=== PATIENT | female | born 1980 | race Caucasian/White ===

== ENCOUNTER 2018-10-27 16:46 | Emergency (ER) | payer OTHER ==
--- OUTSIDE RECORDS SUMMARY | 2018-10-27 17:01 | XMS REPORT | Continuity of Care Document ---
:1980 External Reference #:[id number] Author Name Belinda Viera Care Team Providers Name Role Phone Ila Rodrigues PA Primary Care Physician Unavailable Payers Date Identification Numbers Payment Provider Subscriber Effective: Policy Number: [id number] Lifetime Benefit Reji De La Fuente 2014 Solution Group [place] [facility] [place] [address] PayID: [place] [address] Advance Directives Description No Information Available Problems Date Description Provider Status Onset: 03/31/2015 Migraine without aura Terence Morton M.D. Active Onset: 03/04/2018 Methicillin resistant Staphylococcus Active aureus infection Onset: 05/30/2011 Palpitations Active Onset: 05/30/2011 Migraine with typical aura Active Onset: 05/30/2011 Anxiety state Active Onset: 05/30/2011 Depressive disorder Active Onset: 05/30/2011 Obesity Active Onset: 05/30/2011 Abnormal weight gain Active Onset: 10/14/2018 Abdominal pain ROSE Alatorre Active Onset: 10/14/2018 Mood swings ROSE Alatorre Active Onset: 10/14/2018 Allergic rhinitis ROSE Alatorre Active Family History Date Family Member(s) Observation Comments General Migraine General Cancer General Diabetes General Hypercholesterolemia General Arthritis General Hypertension Mother Rheumatoid Arthritis Mother Hypertension Social History Type Date Description Comments Sex Unknown Marital Status Lives With Spouse Lives With Children 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 Working Tobacco Use Start: Unknown Never Smoked Cigarettes Smoking Status Reviewed: 10/14/18 Never Smoked Cigarettes ETOH Use Occasionally consumes alcohol Tobacco Use Start: Unknown Patient has never smoked Recreational Drug Use Denies Drug Use Exercise Type/Frequency Exercises sporadically Allergies, Adverse Reactions, Alerts Date Description Reaction Status Severity Comments 11/08/2011 Penicillin Active Medications Medication Date Status Form Strength Qnty SIG Indications Ordering Provider Depsocrates 09/[address] 125mg 60tab one pill F34.9 s daily for Conley one week and MD madhav then increase to one pill twice a day Sumatriptan 02/20 Active Solution 4mg/0.5ML 10uni 1 injection Terence Echavarria Auto-Injec ts twice daily denton Morton as needed on M.D. no more than 2 days/week. please include autoinjector with instructions . Venlafaxine HCL 06/05 Active Caps ER 37.5mg 30cap 1 by mouth 24HR s every day Yael corey MD Buspirone HCL 04/18 Active Tablets 10mg 90tab Take One s Tablet By Yael Mouth Nicole corey MD Day Omeprazole 08/11 Active Capsules 20mg 90cap [address] corey every day Yael corey MD Topiramate 12/17 Active Tablets 100mg 90tab 1 by mouth s every day Yael corey MD Acetaminophen Active Tablets 2 tabs 3x a Unknown /0000 day as needed Biotin Active Capsules 1 tab daily Unknown /0000 otc Fusion Plus Active Chewables 2 by mouth Unknown /0000 twice daily Vitamin D Active Capsules 64647Sgzp Take 1 Unknown (Ergocalciferol /0000 Capsule By ) Mouth Twice A Week Dicyclomine HCL Active Tablets 20mg Take One Unknown /0000 Tablet By Mouth Three Times A Day as Needed For Abdominal Pain Benzonatate 08/22 Hx Capsules 200mg 30cap 1 by mouth R05 madhav three times Conley - a day MD madhav 09/23 Bactrim DS 02/24 Hx Tablets 800-160mg 20tab 1 by mouth L03.90 madhav twice a day Yael corey MD 04/07 Valium 01/10 Hx Tablets 5mg 3tabs take 1 tablet 1/2 Conley - hour before MD madhav 02/24 appt, tablet at procedure and another 1/2 hour later if needed Ciprofloxacin 05/06 Hx Tablets 500mg 20tab 1 by mouth N39.0 s twice a day Yael corey MD 05/20 Venlafaxine HCL 05/06 Hx Caps ER 75mg 30cap 1 by mouth 24HR s every day Yael corey MD 06/05 Zithromax 09/11 Hx Packet 1gm 7.5 J20.9 milliliters Conley - by mouth MD madhav 09/11 daily for days Zithromax Z-Christopher 08/30 Hx Tablets 250mg 6tabs day number J20.9 one two Conley - tablets then MD madhav 09/11 day two thru day number five one every day Benzonatate 08/30 Hx Capsules 200mg 30cap one three R0 s times a day Conley - as needed MD madhav 09/11 Pyridium 08/15 Hx Tablets 200mg 9tabs one three times a day Conley - after meals MD madhav 08/30 urine Bactrim DS 08/10 Hx Tablets 800-160mg 20tab 1 by mouth N39.0 s twice a day Yael corey MD 08/30 Ergocalciferol 08/11 Hx Capsules 74190Gfdi 4caps one every weekly Yael corey MD 02/20 Minocin 02/08 Hx Capsules 100mg 60cap 1 by mouth 704.9 s twice a day Yael corey MD 02/20 Azithromycin 07/22 Hx Tablets 250mg 6tabs 2 tablets 461.0 day one then Yael - one tablet MD madhav 02/08 day2 thru day 5 Ativan 05/31 Hx Tablets 1mg 4tabs one tablet 300.00 one hour Conley - prior to MD madhav 02/08 procedure, needed can repeat in one hour do not drive with medication Venlafaxine HCL 05/07 Hx Tablets ER 150mg 90tab Take One 24HR s Tablet By Yael - Mouth Every MD madhav Ibuprofen 02/04 Hx Tablets 800mg 60tab one three 726.90 s times a day Yael - with food MD madhav 02/08 Sumatriptan 05/14 Hx Solution 6mg/0.5ML 10uni 1 injection Terence S. Succinate ts twice a day Selene, - as needed M.D. 02/27 max 2 days a wk Topiramate 05/14 Hx Tablets 25mg 120ta 1 qam for 1 Terence S. /2012 bs week then 2 Selene, - qam for 1 M.D. 12/17 week then qam for 1 week then 4 qam Promethazine 05/14 Hx Tablets 25mg 60tab 1 three S. HCL s times a day Selene, - as needed M.D. 02/26 nausea Azithromycin 02/10 Hx Tablets 250mg 6tabs 2 tablets 466.0 day one then Yael - one tablet MD madhav 11/04 day2 thru day 5 Axert 09/23 Hx Tablets 12.5mg 10tab 1 twice a Terence S. /2012 s day max Selene, William 2d/wk prn M.D. 05/14 headache Maxalt-IMPROVEMENT LEAD 08/14 Hx Tablets 10mg 10tab 1 twice a Terence S. /2012 Dispers s day max 2 Selene, - days/week as M.D. 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 11/23 Mobic 10/18 Hx Tablets 15mg 30tab one qd with 724.9 s bereket corey MD 02/19 Effexor XR Hx Caps ER 37.5mg 30cap 1 po qd Unknown /0000 24HR s - 09/23 Buspar Hx Tablets 5mg 90tab 1 po qd Unknown /0000 s - 09/23 Multi Vitamin Hx Tablets 1 by mouth Unknown Daily /0000 every day - 02/19 Vitamin D Hx Tablets 5000Iu by mouth Unknown /0000 everyday - 09/23 Sumatriptan Hx Tablets 100mg Unknown Succinate /0000 - 02/08 Nystatin Hx Powder [id number] Apply To Unknown / t/GM Affected - Area(S) 08/30 Three Times /2016 A Day as Needed Medications Administered in Office Medication Date Status Form Strength Qnty SIG Indications Ordering Provider Depomedstephanie Administered Injection Summer 80MG Ava Bolden M.D. Immunizations CPT Code Status Date Vaccine Lot # [id number] Given 02/08/2015 Tdap - Tetanus/Diptheria/Acellular Pertussis 80034 Given 11/30/2010 Tdap - Tetanus/Diptheria/Acellular Pertussis 95256 Given 05/03/2009 Administration Swine Flu Shot [id number] Given 05/05/2008 Influenza Virus 3Yrs & Over Vital Signs Date Vital Result Comment 10/14/2018 1:01pm Weight 177.00 lb BP Systolic Sitting 96 mmHg BP Diastolic Sitting 40 mmHg 09/23/2018 4:24pm Weight 176.00 lb BP Systolic Sitting 112 mmHg BP Diastolic Sitting 60 mmHg 09/23/2018 3:14pm Weight 168.00 lb BP Systolic Sitting 112 mmHg BP Diastolic Sitting 60 mmHg 08/22/2018 11:06am Weight 172.00 lb BP Systolic Sitting 110 mmHg BP Diastolic Sitting 50 mmHg Body Temperature 99.2 F 05/27/2018 4:10pm Weight 169.00 lb BP Systolic 104 mmHg BP Diastolic 50 mmHg 04/01/2018 2:49pm Weight 171.00 lb BP Systolic 100 mmHg BP Diastolic 50 mmHg 03/04/2018 1:24pm Weight 166.00 lb 02/27/2018 11:35am Weight 166.00 lb BP Systolic 108 mmHg BP Diastolic 60 mmHg Body Temperature 99.4 F 02/24/2018 3:30pm Height 64.6 inches Weight 166.00 lb BP Systolic 100 mmHg BP Diastolic 70 mmHg BMI (Body Mass Index) 28.0 kg/m2 02/20/2018 3:57pm Height 64 inches 5'4" Weight 162.00 lb Heart Rate 72 /min BP Systolic 106 mmHg BP Diastolic 80 mmHg Respiratory Rate 20 /min Pain Level 3 O2 % BldC Oximetry 99 % BMI (Body Mass Index) 27.8 kg/m2 12/24/2017 12:56pm Weight 164.00 lb BP Systolic 90 mmHg BP Diastolic 40 mmHg 09/23/2017 1:07pm Weight 159.00 lb BP Systolic 80 mmHg BP Diastolic 40 mmHg 06/24/2017 1:11pm Weight 161.00 lb BP Systolic 96 mmHg BP Diastolic 46 mmHg 05/20/2017 1:48pm Weight 156.00 lb 05/06/2017 10:01am Weight 151.00 lb BP Systolic 90 mmHg BP Diastolic 50 mmHg Body Temperature 98.9 F 02/28/2017 2:35pm Height 64 inches 5'4" Weight 143.00 lb Heart Rate 76 /min BP Systolic Sitting 110 mmHg BP Diastolic Sitting 64 mmHg Respiratory Rate 16 /min Pain Level 0 BMI (Body Mass Index) 24.5 kg/m2 02/21/2017 3:34pm Height 64.6 inches Weight 151.00 lb BP Systolic 110 mmHg BP Diastolic 50 mmHg Respiratory Rate 12 /min Body Temperature 98.8 F BMI (Body Mass Index) 25.4 kg/m2 12/12/2016 1:24pm Weight 147.00 lb BP Systolic 102 mmHg BP Diastolic 60 mmHg 09/11/2016 10:53am Weight 145.00 lb BP Systolic 100 mmHg BP Diastolic 50 mmHg 08/30/2016 10:40am Weight 144.00 lb Body Temperature 99.2 F 08/10/2016 11:33am Weight 148.00 lb BP Systolic 92 mmHg BP Diastolic 50 mmHg Body Temperature 99.0 F 06/28/2016 3:14pm Weight 150.00 lb BP Systolic 90 mmHg BP Diastolic 50 mmHg 02/21/2016 3:29pm Height 64.6 inches Weight 157.00 lb BP Systolic 70 mmHg Respiratory Rate 12 /min Body Temperature 98.7 F BMI (Body Mass Index) 26.4 kg/m2 11/09/2015 1:48pm Weight 175.00 lb 10/27/2015 1:06pm Weight 176.00 lb 10/05/2015 1:02pm Weight 181.00 lb BP Systolic 110 mmHg BP Diastolic 76 mmHg 08/11/2015 2:03pm Weight 211.00 lb BP Systolic 118 mmHg BP Diastolic 60 mmHg 05/19/2015 4:26pm Height 64.6 inches Weight 220.00 lb BP Systolic 120 mmHg BP Diastolic 74 mmHg BMI (Body Mass Index) 37.1 kg/m2 05/11/2015 1:41pm Weight 222.00 lb Body Temperature 98.6 F 03/31/2015 1:09pm Height 64 inches 5'4" Weight 214.00 lb Heart Rate 84 /min BP Systolic Sitting 128 mmHg BP Diastolic Sitting 92 mmHg BMI (Body Mass Index) 36.7 kg/m2 02/08/2015 3:56pm Height 64 inches Weight 218.00 lb Heart Rate 76 /min BP Systolic 118 mmHg BP Diastolic 70 mmHg Respiratory Rate 14 /min Body Temperature 98.8 F BMI (Body Mass Index) 37.4 kg/m2 07/22/2014 9:17am Weight 218.00 lb Heart Rate 115 /min BP Systolic 120 mmHg BP Diastolic 82 mmHg Body Temperature 100.3 F 05/31/2014 1:28pm Weight 217.00 lb BP Systolic 118 mmHg BP Diastolic 80 mmHg 02/04/2014 10:05am Height 64.6 inches Weight 227.00 lb Heart Rate 76 /min BP Systolic 110 mmHg BP Diastolic 70 mmHg Respiratory Rate 14 /min Body Temperature 98.8 F BMI (Body Mass Index) 38.2 kg/m2 11/04/2013 9:31am Weight 228.00 lb BP Systolic 110 mmHg BP Diastolic 70 mmHg 04/23/2013 2:19pm Weight 235.00 lb BP Systolic 120 mmHg BP Diastolic 80 mmHg 02/10/2013 1:20pm Weight 230.00 lb Heart Rate 86 /min BP Systolic 120 mmHg BP Diastolic 76 mmHg Body Temperature 99.1 F 11/24/2012 1:21pm Weight 223.00 lb BP Systolic 120 mmHg BP Diastolic 70 mmHg 07/02/2012 2:34pm BP Systolic 110 mmHg BP Diastolic 74 mmHg Body Temperature 99.2 F 02/20/2012 2:39pm Height 63.4 inches Heart Rate 78 /min BP Systolic 130 mmHg BP Diastolic 80 mmHg Respiratory Rate 18 /min Body Temperature 98.6 F 12/13/2011 9:54am BP Systolic 110 mmHg BP Diastolic 64 mmHg 11/22/2011 10:59am Height 64 inches 5'4" BP Systolic 108 mmHg BP Diastolic 66 mmHg 10/19/2011 9:10am Height 64 inches Weight 212.00 lb BP Systolic 118 mmHg BP Diastolic 80 mmHg BMI (Body Mass Index) 36.4 kg/m2 09/05/2011 2:29pm Weight 214.00 lb BP Systolic 110 mmHg BP Diastolic 90 mmHg Results Test Date Facility Test Result H/L Range Note Wound 02/27/2018 N2N/CCD Import Wound/Misc See Result 1, 2 Culture/Sensi Culture-Gram Below Stain CBS W/Automated 07/10/2017 N2N/CCD Import Bas% 0.2 % 0-1.1 3 Diff Baso # 0.02 K/uL 0-0.1 Eo% 1.7 % 0-6.6 Eos # 0.14 K/uL 0-0.5 Hematocrit 41.2 % 36-46.1 Hemoglobin 14.1 gm/dL 11.6-15.8 Lymph # 2.72 K/uL 1-4 Lymph % 33.4 % 20-42 Mean Cell Volume 96.3 fl 80.9-99 Mean Corpuscular HGB 32.9 pg High 25.9-32.7 Mean Corpuscular HGB Conc 34.2 g/dL 30.8-34.3 Mean Platelet Volume 11.1 fL 8.9-12.4 Meagher # 0.54 K/uL 0.3-0.9 Meagher % 6.6 % 4.3-13.2 Neut# 4.72 K/uL 1.8-7 Neut% 58.1 % 40.4-72.8 Platelet Count 255 K/uL 155-360 Red Blood Count 4.28 M/uL 3.9-5.4 Red Cell Distri Width %CV 12.6 % 11.7-14.4 Red Cell Distri Width SD 43.1 fl 3-47 White Blood Count 8.1 K/uL 3.1-10.7 Comprehensive Metabolic Panel 07/10/2017 N2N/CCD Import Alb/Glob 0.9 ratio Albumin 4.3 g/dL 3.4-5 Alkaline Phosphatase 88 U/L 45-117 Anion Gap 8 mEq/L 8-16 BUN 20 mg/dL High 7-18 BUN/Creat 28.5 ratio Bilirubin,Total 0.2 mg/dL 0.2-1 Calcium 8.6 mg/dL 8.5-10.1 Carbon Dioxide 25 mmol/L 21-32 Chloride 109 mmol/L High 98-107 Creatinine 0.7 mg/dL 0.6-1.3 Globulin 4.6 g/dL High 1.9-4.3 Glom Filtration Rate, Estimate >60 mL/min Glucose 87 mg/dL 74-106 If >60 mL/min 4 Potassium 3.7 mmol/L 3.5-5.1 SGPT/Alt 33 U/L 12-78 Sgot/Ast 18 U/L 15-37 Sodium 142 mmol/L 136-145 Total Protein 8.9 g/dL High 6.4-8.2 Laboratory test 05/06/2017 N2N/CCD Import Urine Culture And See Result 5, 6 finding Sensitivities Below Laboratory test 08/10/2016 N2N/CCD Import Urine Culture And See Result 7, 8 finding Sensitivities Below CBC W/Automated 03/03/2015 N2N/CCD Import Bas% 0.4 % 0-1.1 Diff Baso # 0.04 K/uL 0-0.1 Eo% 2.4 % 0-6.6 Eos # 0.25 K/uL 0-0.5 Hematocrit 37.4 % 36-46.1 Hemoglobin 12.6 gm/dL 11.6-15.8 Lymph # 3.36 K/uL 1.8-7 Lymph % 32.4 % 17-46.1 Mean Cell Volume 93.5 fl 80.9-99 Mean Corpuscular HGB 31.5 pg 25.9-32.7 Mean Corpuscular HGB Conc 33.7 g/dL 30.8-34.3 Mean Platelet Volume 11.3 fL 8.9-12.4 Meagher # 0.71 K/uL 0.3-0.9 Meagher % 6.8 % 4.3-13.2 Neut# 6.02 K/uL 1-7 Neut% 58.0 % 40.4-72.8 Platelet Count 230 K/uL 155-360 Red Blood Count 4.00 M/uL 3.9-5.4 Red Cell Distri Width %CV 13.0 % 11.7-14.4 Red Cell Distri Width SD 43.2 fl 3-47 White Blood Count 10.4 K/uL 3.1-10.7 Liver Function Tests 02/15/2015 N2N/CCD Import Alb/Glob 0.8 ratio Albumin 3.5 g/dL 3.4-5 Alkaline Phosphatase 91 U/L 45-117 Bilirubin,Direct < 0.1 mg/dL 0-0.2 Bilirubin,Indirect 0.2 mg/dL 0-0.9 Bilirubin,Total 0.3 mg/dL 0.2-1 Globulin 4.4 g/dL High 1.9-4.3 SGPT/Alt 29 U/L 12-78 Sgot/Ast 15 U/L 15-37 Total Protein 7.9 g/dL 6.4-8.2 LDL Cholesterol Profile 02/15/2015 N2N/Suo Yi Import Cholesterol 196 mg/dL 9 HDL Cholesterol 29 mg/dL 10 LDL-Cholesterol 141 mg/dL 11 Triglycerides 130 mg/dL 12 CBS W/Automated Diff 02/15/2015 N2N/Suo Yi Import Baso # 0.06 K/uL 0-0.1 Eos # 0.47 K/uL 0-0.5 Hematocrit 39.8 % 36-46.1 Hemoglobin 13.4 gm/dL 11.6-15.8 Lymph # 1.98 K/uL 1.8-7 Mean Cell Volume 94.5 fl 80.9-99 Mean Corpuscular HGB 31.8 pg 25.9-32.7 Mean Corpuscular HGB Conc 33.7 g/dL 30.8-34.3 Mean Platelet Volume 11.9 fL 8.9-12.4 Meagher # 0.36 K/uL 0.3-0.9 Neut# 4.10 K/uL 1-7 Platelet Count 183 K/uL 155-360 Red Blood Count 4.21 M/uL 3.9-5.4 Red Cell Distri Width %CV 12.9 % 11.7-14.4 Red Cell Distri Width SD 43.8 fl 3-47 White Blood Count 7.0 K/uL 3.1-10.7 Basic Metabolic Panel 02/15/2015 N2N/Suo Yi Import Anion Gap 7 mEq/L Low 8- 16 BUN 13 mg/dL 7-18 BUN/Creat 18.5 ratio Calcium 9.1 mg/dL 8.5-10.1 Carbon Dioxide 22 mmol/L 21-32 Chloride 110 mmol/L High 98-107 Creatinine 0.7 mg/dL 0.6-1.3 Glom Filtration Rate, Estimate >60 mL/min Glucose 106 mg/dL 74-106 If >60 mL/min 13 Potassium 3.6 mmol/L 3.5-5.1 Sodium 139 mmol/L 136-145 Laboratory test finding 02/15/2015 N2N/CCD Import Anisocytosis 0-1+ Eosinophil% 4 % 0-5 Glycohemoglobin (A1c) 5.2 % 4.2-6.3 14 Lymph% 35 % 17-56 Monocyte% 10 % 0-10 Neutrophils% 51 % 33-73 Platelet Estimate Normal Total Cells Counted 100 #CELLS eAG 103 mg/dL Laboratory test 04/17/2013 N2N/CCD Import Antinuclear See patterns 15 finding Antibodies, Ifa Glucose 92 mg/dL 76-115 16 Hla-B27 Disease Association Negative 17 Magnesium 2.0 mg/dL 1.7-2.3 Note See Note 18 Rheumatoid Factor Screen Negative Sedimentation Rate 25 mm/hr High 0-20 Speckled Pattern 1:160 High Thyroid Stim Hormone 3.37 uIU/mL 0.49-4.67 CBC 04/17/2013 N2N/CCD Import Hematocrit 38.4 % 36-46.1 Hemoglobin 13.0 gm/dL 11.6-15.8 Mean Cell Volume 92.8 fl 80.9-99 Mean Corpuscular HGB 31.4 pg 25.9-32.7 Mean Corpuscular HGB Conc 33.9 g/dL 30.8-34.3 Mean Platelet Volume 11.0 fL 8.9-12.4 Platelet Count 256 K/uL 155-360 Red Blood Count 4.14 M/uL 3.9-5.4 Red Cell Distri Width %CV 12.7 % 11.7-14.4 White Blood Count 8.7 K/uL 3.1-10.7 Laboratory test 12/03/2012 N2N/CCD Import Skin Biopsy See Note 19 finding Laboratory test 07/02/2012 N2N/CCD Import Flu A/B Culture W/ See Note 20 finding RFLX H1N1 Influenza A & B 07/02/2012 N2N/CCD Import Influenza A Antigen See Note 21 Antigen Influenza B Antigen See Note 22 Imaging finding 10/19/2011 N2N/CCD Import lumbarsacral series <pending> 1 [id number] SEE RESULT BELOW Name: ANDREIA DE LA FUENTE : [address]: Ila ROSE Acct: [id number] Unit: [id number] AGE: 37 Location: [facility] Re02/27/18 SEX: F Status: REG REF SPEC: [id number] PRINCESS: 02/27/18-[address]: Ila ROSE REQ: [id number] RECD: 02/27/18 STATUS: COMP _ SOURCE: MISC SOURC SPDESC:OTHER ORDERED: Culture Stain COMMENTS: [id number] QUERIES: Specimen Description WOUND RIGHT CHEEK C/S Procedure Result Reported Site Wound/Misc Gram Stain Final 02/27/18- 1609 ML 1+ Epithelial Cells 1+ Neutrophils No Organisms Seen Wound/Misc Culture Final 03/01/18- 1001 ML Organism 1 MRSA Quantity 2+ 1. MRSA M.I.C. RX --------- ------ Penicillin >=0.5 R Clindamycin <=0.25 S Erythromycin >=8 R Gentamicin <=0.5 S Linezolid 2 S Oxacillin >=4 R * Quinupristin/Dalfopristin <=0.25 S Rifampin <=0.5 S Tetracycline <=1 S Doxycycline - Deduced S * Minocycline - Deduced S Trimethoprim/Sulfamethoxazole <=10 S Vancomycin 1 S Imipenem-Deduced R * Ampicillin/Sulbactam-Deduced R Cefazolin-Deduced R CONTINUED ON NEXT PAGE DEPARTMENT OF PATHOLOGY, [address] [place] [address] Sampson Taylor M.D. Director [facility] # [id number] Patient: ANDREIA DE LA FUENTE [id number] (Continued) Specimen: [id number] Collected: 02/27/18-1153 Received: 02/27/18 (Continued) Procedure Result Reported Site Wound/Misc Culture Final (continued) * These antibiotics are not available in the [facility] Formulary Contact the Microbiology Department for any additional antibiotic reporting. * ML - Main Lab . END OF REPORT DEPARTMENT OF PATHOLOGY, [address] [place] [address] Sampson Taylor M.D. Director [facility] # [id number] 3 DEHYDRATED 4 Note: Persistent reduction for 3 months or more in an eGFR <60 mL/min/1.73 m2 defines CKD. Patients with eGFR values >/=60 mL/min/1.73 m2 may also have CKD if evidence of persistent proteinuria is present. The original MDRD equation for estimated GFR is not valid for patients less than 18 years of age. Additional information may be found at www.kdoqi.org. 5 [id number] 6 SEE RESULT BELOW Name: ANDREIA DE LA FUENTE : [address]: Ila ROSE Acct: [id number] Unit: [id number] AGE: 36 Location: [facility] Re05/06/17 SEX: F Status: REG REF SPEC: [id number] PRINCESS: 05/06/17-1033 [facility] DR: Ila ROSE REQ: [id number] RECD: 05/06/17 STATUS: COMP _ SOURCE: URINE SPDESC: ORDERED: Urine Culture COMMENTS: [id number] QUERIES: Urine Source: Random Procedure Result Reported Site Urine Culture Final 05/07/17- 1215 ML No growth of clinically significant organisms * ML - MAIN LAB ([facility]) . END OF REPORT * ML=Testing performed at Main Lab DEPARTMENT OF PATHOLOGY, [address] [place] [address] Sampson Taylor M.D. Director [facility] # [id number] 7 [id number] 8 SEE RESULT BELOW Name: ANDREIA DE LA FUENTE : [address]: Ila ROSE Acct: [id number] Unit: [id number] AGE: 35 Location: [facility] Re08/10/16 SEX: F Status: REG REF SPEC: [id number] PRINCESS: 08/10/16-[address]: Ila ROSE REQ: [id number] RECD: 08/10/16 STATUS: COMP _ SOURCE: URINE SPDESC: ORDERED: Urine Culture COMMENTS: [id number] Urine Source: Random Procedure Result Reported Site Urine Culture Final 08/13/16- 1405 ML No growth of clinically significant organisms * ML - MAIN LAB ([facility]) . END OF REPORT * ML=Testing performed at Main Lab DEPARTMENT OF PATHOLOGY, [address] [place] [address] Sampson Taylor M.D. Director [facility] # [id number] 9 Reference Guidelines*: Desirable: ........... < 200 mg/dL Borderline High: ..... 200-239 mg/dL High: ................ >=240 mg/dL * The National Cholesterol Education Program (NCEP) 10 Reference Guidelines*: Low HDL: ..... < 40 mg/dL Normal: ..... 40-60 mg/dL Desirable: ... > 60 mg/dL *The National Cholesterol Education Program(NCEP) 11 Reference Guidelines*: Optimal:........... <100 mg/dL Near Optimal....... 100-129 mg/dL Borderline High.... 130-159 mg/dL High............... 160-189 mg/dL Very High.......... >=190 mg/dL * Source: National Cholesterol Education Program (NCEP) 12 Reference Guidelines*: Normal: ............. < 150 mg/dL Borderline High: .... 150-199 mg/dL High: ............... 200-499 mg/dL Very High: .......... > 500 mg/dL * Source: National Cholesterol Education Program (NCEP) 13 Note: Persistent reduction for 3 months or more in an eGFR <60 mL/min/1.73 m2 defines CKD. Patients with eGFR values >/=60 mL/min/1.73 m2 may also have CKD if evidence of persistent proteinuria is present. The original MDRD equation for estimated GFR is not valid for patients less than 18 years of age. Additional information may be found at www.kdoqi.org. 14 Elevated levels of HbA1c suggest the need for more aggressive treatment of glycemia. The [place] [employer] Diabetes Association recommends that a primary goal of therapy should be a HbA1c of <7% and that physicians should re-evaluate the treatment regimen in patients with HbA1c values consistently >8%. 15 Negative <1:80 Borderline 1:80 Positive >1:80 16 QUERY: Is the Patient Fasting? Y 17 HLA-B*27 Negative This test was performed using PCR (Polymerase Chain Reaction)/SSOP (Sequence Specific Oligonucleotide Probes) technique. SBT (Sequence Based Typing) and/or SSP (Sequence Specific Primers) may be used as supplemental methods when necessary. Please contact [facility] Customer Service at if you have any questions. Director of [facility] Laboratory Dr Nishant Dasilva, PhD Performed at: [address] [place] [id number] Certified Scrub Tech: Nishant Dasilva PhD, Phone: [phone] Performed at: [facility] [id number] Certified Scrub Tech: Iesha Wilkinson MD, Phone: [phone] 18 A positive OLIVIA result may occur in healthy individuals or be associated with a variety of diseases. See interpre- tation below: Pattern Antigen Detected Suggested Disease Association Homogeneous DNA(ds,ss,), High titers - SLE (Smooth) Histone Speckled Sm, JACQUARD FIXER, SCL-70, SLE,MCTD,Scleroderma,Sjogrens SS-A/SS-B Nucleolar SCL-70, PM-1/SCL High titers Scleroderma Poly- myositis/Scleroderma Overlap Centromere Centromere PSS w/Crest syndrome variable 19 OPERATION/PROCEDURE Excision DIAGNOSIS: "NEOPLASM OF CHEEK, BIOPSY": MELANOCYTIC NEVUS, COMPOUND CONGENITAL, SUPERFICIALLY EXCISED. Bertrand GROSS The specimen is received in formalin labeled, "NEOPLASM OF CHEEK" is a 0.5 x 0.5 x 0.2 cm. bae, rubbery skin with a bulging surface. The deep edge is inked, the specimen is bisected and submitted in toto in one block. JW/clf MICROSCOPIC Sections reveal relatively symmetrical and round nests and trabeculae of oval small nevus cells in the dermis. There is intimacy with adnexal structures and collagen splitting. No architectural nor cytologic atypia is seen. CLINICAL HISTORY Enlarging irritated facial lesion. PRE OPERATIVE DIAGNOSIS Neoplasm of cheek REVIEW CODE CODE: I FABY Gaines MD 12/05/12 1225 20 WANTED JUST THE FLUE 21 NEGATIVE FOR INFLUENZA A ANTIGEN Influenza A testing has been performed by non-culture methods. Viral (cell) culture testing may be considered to confirm the results or if testing is desired to detect other viruses that can cause similiar clinical symptoms. 22 NEGATIVE FOR INFLUENZA B ANTIGEN Influenza B testing has been performed by non-culture methods. Viral (cell) culture testing may be considered to confirm the results or if testing is desired to detect other viruses that can cause similiar symptoms. Procedures Date Code Description Status 02/21/2016 20226 Screening Vision Test Completed 05/16/2015 13903 Removal Skin Tags Up To 15 Completed 02/04/2014 90476 Screening Vision Test Completed 02/04/2014 69337 Pure Tone Hearing Test, Air Completed 02/10/2013 19310 Inhalation [place] For Acute Airway Obstruction Completed W/Nebulizer/Inhaler 12/03/2012 57928 Excision,Benign,Face,Ears,Eyelids,Nose,Lips 0.6 To 1.0 CM Completed 12/03/2012 30615 Excise Benign Lesion <.5CM Face/Ear/Eyelid/Nose/Lip/Mucous Completed Memb 06/12/2012 99179 Inject Tendon Sheath Or Ligament Aponeurosis Eg Plantar Completed Fascia 02/20/2012 55834 Screening Vision Test Completed 02/20/2012 93151 Pure Tone-Air Condition Only Completed 12/18/2011 32789 Carpal Tunnel Release Completed 11/27/2011 10525 Carpal Tunnel Release Completed 03/23/2011 02688 EKG Tracing & Interpretation Completed 07/12/2010 66240 Screening Vision Test Completed 07/12/2010 02413 Pure Tone-Air Condition Only Completed 06/13/2009 03807 Pure Tone-Air Condition Only Completed Encounters Type Date Location Provider Dx Diagnosis Office Visit 09/23/2018 [facility] ROSE Alatorre F41.9 Anxiety disorder, 3:00p unspecified F43.23 Adjustment disorder with mixed anxiety and depressed mood F34.9 Persistent mood [affective] disorder, unspecified Office Visit 08/22/2018 10:45a [facility] ROSE Alatorre J06.9 Acute upper Care respiratory infection, unspecified R05 Cough Office Visit 02/20/2018 Lucio Echavarria G43.009 Migraine w/o 3:45p [facility] aura, not Academic Manager intractable, w/o status migrainosus Office Visit 02/28/2017 Lucio Echavarria G43.009 Migraine w/o 2:45p [facility] aura, not Academic Manager intractable, w/o status migrainosus Office Visit 03/31/2015 Lucio Echavarria G43.009 Migraine w/o 1:00p [facility] aura, not Academic Manager intractable, w/o status migrainosus Office Visit 12/17/2013 Lucio Echavarria 346.10 Migraine Common 9:15a [facility] W/O Intractable Academic Manager W/O Status Migrainosus Office Visit 05/14/2013 uLcio Echavarria 346.11 Migraine W/O Aura 1:15p [facility] W/Intractable W/O Academic Manager Status Migrainosus Office Visit 08/14/2012 Lucio Echavarria 346.10 Migraine Common 1:15p [facility] W/O Intractable Academic Manager W/O Status Migrainosus 354.0 Carpal Tunnel Syndrome Office Visit 06/12/2012 9:45a [facility] Summer Bolden, 354.0 Carpal Tunnel of Academic Manager M.D. 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 Syndrome Plan of Treatment Future Appointment(s):10/15/2018 8:45 am - Cleo Collado NP at [facility] [id number]/21/2019 3:30 pm - ROSE Alatorre at [facility]2018 3:30 pm - Terence Morton M.D. at [facility]
[2018-10-27 17:48] VITALS: BP 124/71
--- NOTE | 2018-10-27 18:42 | UC ---
Complaint Female HPI - HPI Summary HPI Summary: 38 -year-old female who thought she might have a tampon stuck in her vagina. - History Of Current Complaint Chief Complaint: UCGeneralIllness Stated Complaint: PERSONAL Time Seen by Provider: 10/27/18 18:30 Hx Obtained From: Patient Hx Last Menstrual Period: 10/18/18-10/24/18 ?: No Onset/Duration: Other - Patient thinks the tampon might be there from approximately 2 days ago. Timing: Constant Severity Initially: Mild Severity Currently: None Pain Intensity: 0 Aggravating Factor(s): Nothing Alleviating Factor(s): Nothing Associated Signs And Symptoms: Positive: Negative - Allergies/Home Medications Allergies/Adverse Reactions: Allergies Allergy/AdvReac Type Severity Reaction Status Date / Time clindamycin Allergy Unknown Verified 10/27/18 17:34 Reaction Details Penicillins Allergy Unknown Verified 10/27/18 17:34 Reaction Details Home Medications: Home Medications Divalproex DR TAB(*) [Depakote DR TAB(*)] 1 cap BID 10/27/18 [History Confirmed 10/27/18] Omeprazole 20 mg QAM 10/27/18 [History Confirmed 10/27/18] PMH/Surg Hx/FS Hx/Imm Hx Previously Healthy: Yes - Surgical History Surgical History: Yes Surgery Procedure, Year, and Place: Essure procedure. Gall bladder, 01/2005, [facility]. Gastric bypass, 2015 - Family History Known Family History: Positive: Non-Contributory - Social History Alcohol Use: Occasionally Substance Use Type: None Smoking Status (MU): Never Smoked Tobacco Review of Systems All Other Systems Reviewed And Are Negative: Yes Genitourinary: Positive: Other - Patient thinks she may have a tampon in her vagina. She was seen earlier in the month in the emergency room for some right- sided pain and it was felt at that time she had a right ovarian cyst. She does have an appointment with her [employer] physician this week on . Is Patient Immunocompromised?: No Physical Exam Triage Information Reviewed: Yes Appearance: Well-Appearing, No Pain Distress, Well-Nourished Vital Signs: Initial Vital Signs Temp 98.3 F 10/27/18 17:36 Pulse 70 10/27/18 17:36 Resp 16 10/27/18 17:36 BP 124/71 10/27/18 17:36 Pulse Ox 100 04/22/19 17:36 Abdomen Description: Positive: Nontender, No Organomegaly, Soft Bowel Sounds: Positive: Present Pelvic Exam: Positive: External Exam Normal, Speculum Exam Normal, Bimanual Exam Normal, Other - Small amount of white milky discharge in the vaginal canal. No cervical motion or adnexal tenderness. Musculoskeletal Exam: Normal Neurological Exam: Normal Psychological Exam: Normal Complaint Female Dx - Course Course Of Treatment: Patient has been comfortable here. The pelvic exam did not reveal any tampon in the vaginal canal. She is going to see her [employer] physician this as previously scheduled for follow-up of the emergency room visit where she had some right-sided pain and it was felt that she had a right ovarian cyst. That pain has improved according to the patient. - Differential Dx/Diagnosis Provider Diagnosis: Normal pelvic exam Discharge - Sign-Out/Discharge Documenting (check all that apply): Patient Departure All imaging exams completed and their final reports reviewed: No Studies - Discharge Plan Condition: Good Disposition: HOME Referrals: Ila Rodrigues PA [Primary Care Provider] - Additional Instructions: Follow-up with Dr. Mendoza as scheduled for later in the week. - Billing Disposition and Condition Condition: GOOD Disposition: Home - Attestation Statements Provider Attestation: Per institutional requirements, I have reviewed the chart, however, I was not consulted specifically or made aware of this patient by the midlevel provider. I did not personally evaluate, interact with , or disposition this patient.
== END 2018-10-27 18:57 | disposition home or self-care (01) ==
LOC: UCCORT 16:46
DX: Z03.89 Encounter for observation for other suspected diseases and conditions ruled out (principal)
CPT/HCPCS: 99212; G0463

== ENCOUNTER 2019-06-27 10:25 | Emergency (ER) | payer OTHER ==
[2019-06-27 10:51] VITALS: BP 118/76
--- NOTE | 2019-06-27 12:02 | UC ---
Skin Complaint HPI - HPI Summary HPI Summary: 38-year-old female presents with painful lesions to her chin. States approximately 2 weeks ago she developed an ingrown hair that she attempted to remove some tweezers. States she has been picking at the lesion to try to get to drain. Has noted small amount of purulent drainage, states over the last several days she started developing other lesions to her chin. Has a history of cellulitis in the past. No known history of MRSA. Denies fever or chills. - History of Current Complaint Chief Complaint: UCSkin Time Seen by Provider: 06/27/19 11:32 Stated Complaint: SKIN COMPLAINT-CHIN Hx Obtained From: Patient Hx Last Menstrual Period: hx ablation Pain Intensity: 3 - Allergy/Home Medications Allergies/Adverse Reactions: Allergies Allergy/AdvReac Type Severity Reaction Status Date / Time clindamycin Allergy Unknown Verified 06/27/19 10:45 Reaction Details Penicillins Allergy Unknown Verified 06/27/19 10:45 Reaction Details PMH/Surg Hx/FS Hx/Imm Hx GI/ History: Gastroesophageal Reflux Psychological History: Depression - Surgical History Surgical History: Yes Surgery Procedure, Year, and Place: Essure procedure. Gall bladder, 01/2005, [facility]. Gastric bypass, 2016. Uterine ablation - Family History Known Family History: Positive: Non-Contributory - Social History Occupation: Employed Full-time Lives: With Family Alcohol Use: Occasionally Substance Use Type: None Smoking Status (MU): Never Smoked Tobacco Review of Systems All Other Systems Reviewed And Are Negative: Yes Constitutional: Negative: Fever, Chills Skin: Positive: Other - See HPI Respiratory: Positive: Negative Cardiovascular: Positive: Negative Gastrointestinal: Positive: Negative Genitourinary: Positive: Negative Musculoskeletal: Positive: Negative Neurological: Positive: Negative Is Patient Immunocompromised?: No Physical Exam - Summary Physical Exam Summary: GENERAL APPEARANCE: Well developed, well nourished, alert and cooperative, and appears to be in no acute distress. NECK: Neck supple, non-tender without lymphadenopathy. CARDIAC: Normal S1 and S2. No S3, S4 or murmurs. Rhythm is regular. There is no peripheral edema, cyanosis or pallor. Extremities are warm and well perfused. Capillary refill is less than 2 seconds. Peripheral pulses intact. LUNGS: Clear to auscultation without rales, rhonchi, wheezing or diminished breath sounds. ABDOMEN: Positive bowel sounds. Soft, nondistended, nontender. No guarding or rebound. No masses or hepatosplenomegally. MUSKULOSKELETAL: ROM intact to all extremities. No joint erythema or tenderness. Normal muscular development. Normal gait. SKIN: Skin normal color, texture and turgor. Multiple tender, erythematous raised papular lesions with erythema of the surrounding tissue to the the inferior chin. No purlent discharge or fluctuation noted. Triage Information Reviewed: Yes Vital Signs: Initial Vital Signs Temp 98 F 06/27/19 10:46 Pulse 84 06/27/19 10:46 Resp 16 06/27/19 10:46 BP 118/76 06/27/19 10:46 Pulse Ox 100 06/27/19 10:46 Vital Signs Reviewed: Yes Course/Dx - Course Course Of Treatment: 38-year-old female presents with painful lesions to her chin. States approximately 2 weeks ago she developed an ingrown hair that she attempted to remove some tweezers. States she has been picking at the lesion to try to get to drain. Has noted small amount of purulent drainage, states over the last several days she started developing other lesions to her chin. Has a history of cellulitis in the past. No known history of MRSA. Denies fever or chills. Afebrile. Vital signs stable. Patient had multiple tender, erythematous raised papular lesions with erythema of the surrounding tissue to the the inferior chin with no purlent discharge or fluctuation noted cyst and with a folliculitis barbae. We'll start her on Bactrim DS 1 tablet twice daily 5 days. She is to follow-up with her primary care provider in 3 days if symptoms are not improving. Anticipatory guidance and warning symptoms reviewed with the patient. Verbalizes understanding and agrees with plan of care. - Differential Diagnoses - Skin Complaint Differential Diagnoses: Abscess, Cellulitis, Impetigo, MRSA - Diagnoses Provider Diagnosis: Folliculitis barbae Discharge ED - Sign-Out/Discharge Documenting (check all that apply): Patient Departure All imaging exams completed and their final reports reviewed: No Studies - Discharge Plan Condition: Stable Disposition: HOME Prescriptions: Sulfamethox/Trimethoprim DS* [Bactrim DS 800/160 TAB*] 1 tab PO BID 5 Days #10 tab Patient Education Materials: Folliculitis (ED) Referrals: Ila Rodrigues PA [Primary Care Provider] - 3 Days (If no improvement.) Additional Instructions: You appear to have an infection of the hair follicles of her chin called folliculitis. We will start she had an antibiotic to treat the infection. Take Bactrim DS one tablet twice daily for 5 days. Be sure to complete the entire course even if feeling better. Clean the skin at least once a day with a gentle soap and water. Try not to touch or pick at the lesions as you could potentially spread the infection to other areas. Follow-up with your primary care provider in 3 days if symptoms are not improving. Seek immediate medical attention if you develop fever greater than 100.5 F, redness that rapidly spreads, swelling of the face, or any worsening of symptoms. - Billing Disposition and Condition Condition: STABLE Disposition: Home
== END 2019-06-27 12:12 | disposition home or self-care (01) ==
LOC: UCCORT 10:25
DX: L73.8 Other specified follicular disorders (principal); Z88.0 Allergy status to penicillin; Z88.1 Allergy status to other antibiotic agents
CPT/HCPCS: 99212; G0463

== ENCOUNTER 2019-09-07 17:43 | Emergency (ER) | payer OTHER ==
[2019-09-07 18:32] VITALS: BP 118/74
--- NOTE | 2019-09-07 19:28 | UC ---
Skin Complaint HPI - HPI Summary HPI Summary: 38-year-old female presenting with complaint of "possible cellulitis" that began last night. Patient states there is an area of redness on her inner right elbow that has grown in size since last night. Does note warmth of the area and mild tenderness to palpation. Denies drainage. Denies fever and chills. Denies nausea and vomiting. Patient states she has a history of cellulitis in the past. Denies MRSA infections. Patient also adds that she has had pain over her ulnar aspect of her right hand x1 month. Patient states she thinks she either pulled something during a CPR class but that she is also concerned for possible rheumatoid arthritis because it runs in her family. Denies numbness and tingling. Denies decreased ROM. Denies swelling and bruising. Does note h/o carpal tunnel surgery b/l. Denies doing anything for symptom relief. - History of Current Complaint Chief Complaint: UCUpperExtremity Stated Complaint: RIGHT ELBOW SKIN COMPLAINT, BACK/RT WRIST PAIN Hx Obtained From: Patient Hx Last Menstrual Period: 09/06/2019 Pain Intensity: 6 Pain Scale Used: 0-10 Numeric - Allergy/Home Medications Allergies/Adverse Reactions: Allergies Allergy/AdvReac Type Severity Reaction Status Date / Time clindamycin Allergy Unknown Verified 09/07/19 18:21 Reaction Details Penicillins Allergy Unknown Verified 09/07/19 18:21 Reaction Details NSAIDS (Non-Steroidal AdvReac See Comment Verified 09/07/19 18:55 Anti-Inflamma Home Medications: Home Medications Topiramate TAB(*) [Topamax(*)] 100 mg PO DAILY 01/28/15 [History Confirmed 09/06] busPIRone TAB* [Buspar TAB*] 10 mg PO DAILY 01/28/15 [History Confirmed 09/07/19 ] Omeprazole 20 mg QAM 10/27/18 [History Confirmed 09/07/19] Biotin 10,000 mcg PO DAILY 09/07/19 [History Confirmed 09/07/19] Calcium Carbonate [Calcium] 1,000 mg PO DAILY 09/07/19 [History Confirmed ] Cholecalciferol TAB* [Vitamin D TAB*] 1,000 unit PO DAILY 09/07/19 [History Confirmed 09/07/19] Multivit-Min/Iron/Folic Acid/K [Bariatric Mv-Iron 45 mg Cap] 1 each PO DAILY 08/27 [History Confirmed 09/07/19] Sulfamethox/Trimethoprim DS* [Bactrim DS 800/160 TAB*] 1 tab PO BID #10 tab 08/27 [Rx] Venlafaxine HCl [Effexor XR-] 75 mg PO DAILY 09/07/19 [History Confirmed ] PMH/Surg Hx/FS Hx/Imm Hx - Surgical History Surgical History: Yes Surgery Procedure, Year, and Place: Essure procedure. Gall bladder, 01/2005, [facility]. Gastric bypass, 2016. Uterine ablation. Tummy tuck - Family History Known Family History: Positive: Non-Contributory - Social History Alcohol Use: Occasionally Substance Use Type: None Smoking Status (MU): Never Smoked Tobacco Review of Systems All Other Systems Reviewed And Are Negative: Yes Constitutional: Positive: Negative Skin: Positive: Other - "possible cellulitis" right elbow ENT: Positive: Negative Respiratory: Positive: Negative Cardiovascular: Positive: Negative Gastrointestinal: Positive: Negative Musculoskeletal: Positive: Arthralgia - right hand. Negative: Decreased ROM, Edema Neurological/Mental Status: Positive: Negative. Negative: Paresthesia, Numbness Physical Exam - Summary Physical Exam Summary: Vital Signs Reviewed: Yes A+Ox3, no distress, well-appearing Eyes: Conjunctiva Clear ENT: Hearing grossly normal Neck: Positive: Supple Respiratory: Positive: No respiratory distress, No accessory muscle use Cardiovascular: skin reflects adequate perfusion Musculoskeletal Exam: ALDANA x 4 without difficulty, right elbow ROM intact and full, no edema or R elbow, +TTP of right 4th and 5th metacarpals without edema, erythema or ecchymosis, right handgrip strength intact Neurological: Positive: Alert, + sensation throughout Psychological: Positive: age appropriate behavior Skin: Positive: 2cm wide round area of erythema and warmth noted on medial aspect of right elbow not well-demarcated, mild TTP, no fluctuance, no edema Vital Signs: Initial Vital Signs Temp 99.5 F 09/07/19 18:28 Pulse 96 09/07/19 18:28 Resp 16 09/07/19 18:28 BP 118/74 09/07/19 18:28 Pulse Ox 99 09/07/19 18:28 Diagnostics - Radiology right hand Radiology Interpretation Completed By: ED Physician Summary of Radiographic Findings: no acute process Course/Dx - Course Course Of Treatment: I treated the patient with Bactrim for cellulitis. I educated on s/s of worsening infection and instructed to go to ED if any red flags occur. I also discussed initial normal read of radiographs with patient and informed her that she'll be notified with any abnormalities found on the final report in the morning. Instructed to continue to rest and ice the area. Patient declined treatment with the brace. Instructed to follow-up with Dr. Valle if pain persists. Patient voiced understanding and agreed with treatment plan. - Diagnoses Provider Diagnosis: Cellulitis, Right hand pain Discharge ED - Sign-Out/Discharge Documenting (check all that apply): Patient Departure All imaging exams completed and their final reports reviewed: No - Discharge Plan Condition: Stable Disposition: HOME Prescriptions: Sulfamethox/Trimethoprim DS* [Bactrim DS 800/160 TAB*] 1 tab PO BID #10 tab Patient Education Materials: Cellulitis (ED), Hand Sprain (ED) Referrals: Ila Rodrigues PA [Primary Care Provider] - Summer Valle MD [Medical Doctor] - Additional Instructions: As discussed, your radiograph was reviewed by the provider that treated you tonight. It will be read by a radiologist tomorrow morning. If there is a finding other than that discussed with you today, you will receive a call from a care provider. Continue to rest and ice the hand for pain relief. Follow up with Dr. Valle listed below for further evaluation of hand pain. Take Bactrim as prescribed for your cellulitis. You may continue to apply warm compresses 2-3 times daily. Go to the emergency room if you experience increasing redness, pain, fever, nausea, or vomiting. - Billing Disposition and Condition Condition: STABLE Disposition: Home - Attestation Statements Provider Attestation: This patient was not seen by me. I was available for consult. Chart reviewed. CLAUDY
--- NOTE | 2019-09-08 08:22 | UC ---
- Progress Note Progress Note: xray report right hand : REPORT: #. Negative for fracture or focal osseous lesions. #. Normal articular alignment and preserved joint spaces. No arthropathic change evident. #. Unremarkable soft tissue contours. IMPRESSION: # . Negative exam. Course/Dx - Diagnoses Provider Diagnoses: Cellulitis, Right hand pain Discharge ED - Sign-Out/Discharge Documenting (check all that apply): Patient Departure All imaging exams completed and their final reports reviewed: Yes - Discharge Plan Condition: Stable Disposition: HOME Prescriptions: Sulfamethox/Trimethoprim DS* [Bactrim DS 800/160 TAB*] 1 tab PO BID #10 tab Patient Education Materials: Cellulitis (ED), Hand Sprain (ED) Referrals: Ila Rodrigues PA [Primary Care Provider] - Summer Valle MD [Medical Doctor] - Additional Instructions: As discussed, your radiograph was reviewed by the provider that treated you tonight. It will be read by a radiologist tomorrow morning. If there is a finding other than that discussed with you today, you will receive a call from a care provider. Continue to rest and ice the hand for pain relief. Follow up with Dr. Valle listed below for further evaluation of hand pain. Take Bactrim as prescribed for your cellulitis. You may continue to apply warm compresses 2-3 times daily. Go to the emergency room if you experience increasing redness, pain, fever, nausea, or vomiting. - Billing Disposition and Condition Condition: STABLE Disposition: Home
== END 2019-09-07 20:17 | disposition home or self-care (01) ==
LOC: UCCORT 17:43
DX: L03.113 Cellulitis of right upper limb (principal); M79.641 Pain in right hand; Z88.0 Allergy status to penicillin; Z88.1 Allergy status to other antibiotic agents; Z88.8 Allergy status to other drugs, medicaments and biological substances
CPT/HCPCS: 99212; G0463